=== PATIENT | female | born 1985 | race Caucasian/White ===

== ENCOUNTER 2020-07-01 07:38 | Outpatient (CLI) | payer OTHER, SELFPAY ==
[2020-07-01 08:06] LABS: Basophils Percent Auto 0.3 % (0.2-1.2); Eosinophils Absolute Auto 0.1 K/mm3 (0-0.3); Eosinophils Percent Auto 1.6 % (0-4.4); Hematocrit 37.2 % (37.0-47.0); Hemoglobin 12.3 g/dL (12.0-15.0); Immature Granulocyte Absolute 0.02 K/mm3 (0.00-0.031); Immature Granulocyte Percent A 0.3 % (0-0.5); Lymphocytes Absolute Auto 1.38 K/mm3 (0.9-3.2); Lymphocytes Percent Auto 19.6 % (18.3-44.2); Mean Corpuscular HGB Conc 33.1 g/dl (32-36); Mean Corpuscular Hemoglobin 28.7 pg (26-34); Mean Corpuscular Volume 86.9 fl (80-100); Monocytes Absolute Auto 0.5 K/mm3 (0.1-0.6); Monocytes Percent Auto 7.5 % (2.6-8.5); Neutrophils Percent Auto 70.7 % (45.5-73.1); Platelet Count Result 247 k/mm3 (150-375); Red Blood Count 4.28 M/mm3 (4.2-5.4); Red Cell Distribution Width 13.4 % (11.5-14.5)
[2020-07-01 08:24] LABS: Alanine Aminotransferase 18 U/L (4-35); Albumin Level 4.5 g/dL (3.5-5.1); Alkaline Phosphatase 95 U/L (38-126); Anion Gap 8 mmol/L (8-16); Aspartate Amino Transferase 26 U/L (14-36); Bilirubin,Total 0.5 mg/dL (0.2-1.3); Blood Urea Nitrogen 14 mg/dL (7-17); Calcium 9.5 mg/dL (8.4-10.2); Carbon Dioxide 29 mmol/L (22-30); Chloride 103 mmol/L (98-107); Cholesterol 158 mg/dL (0-200); Estimated Glomerular Filt Rate > 60; Glucose 92 mg/dL (65-105); HDL Direct 52 mg/dL; Potassium 4.1 mmol/L (3.4-5.0); Sodium 140 mmol/L (137-145); Triglycerides 82 mg/dL (<150)
[2020-07-01 08:35] LABS: LDL Cholesterol Direct 68 mg/dL
[2020-07-01 08:38] LABS: Hemoglobin A1C 5.2 % (<5.7)
[2020-07-01 08:53] LABS: Thyroid Stimulating Hormone 0.954 uIU/mL (0.465-4.680)
[2020-07-01 09:01] LABS: Vitamin D 25 Hydroxy 32.5 ng/mL
[2020-07-04 13:53] LABS: Prolactin 6.6 ng/mL (***)
== END 2020-07-01 07:39 | disposition home or self-care (01) ==
PROVIDERS: PCP Family Medicine; Visit Provider Obstetrics & Gynecology
DX: Z00.00 Encounter for general adult medical examination without abnormal findings (principal); N64.59 Other signs and symptoms in breast
CPT/HCPCS: 36415; 80053; 80061; 82306; 83036; 84146; 84443; 85025

== ENCOUNTER 2020-10-03 15:09 | Outpatient (CLI) | payer OTHER, SELFPAY ==
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
== END 2020-10-03 15:10 | disposition home or self-care (01) ==
PROVIDERS: PCP Family Medicine; Visit Provider Nurse Practitioner Family
DX: M50.321 Other cervical disc degeneration at C4-C5 level (principal)
CPT/HCPCS: 72040

== ENCOUNTER 2020-10-14 06:39 | Outpatient (CLI) | payer OTHER, SELFPAY ==
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
== END 2020-10-14 06:40 | disposition home or self-care (01) ==
PROVIDERS: PCP Family Medicine; Visit Provider Nurse Practitioner Family
DX: M54.12 Radiculopathy, cervical region (principal)
CPT/HCPCS: 72141

== ENCOUNTER 2022-07-19 17:49 | Outpatient (CLI) | payer OTHER, SELFPAY ==
--- NOTE | ~2022-07-19 | US_ITS ---
EXAMINATION: US OB <=14 wk fetus w TV DATE: 07/19/2022 18:49 INDICATION: Vaginal spotting. Early intrauterine . TECHNIQUE: Real-time transabdominal and transvaginal obstetric ultrasound. FINDINGS: No prior studies for comparison. The uterus measures 7.7 x 6.1 x 6.4 cm. There is an intrauterine gestational sac, with pole harjinder ntified. The crown rump length measures 0.66 cm, which correlates with a estimated gestational age o f 6 weeks 4 days. heart tones are identified measuring 144 BPM. The ovaries are obscured by b owel gas. IMPRESSION: 1. SL IUP with an EGA of 6 weeks, 4 days (EDC by current ultrasound of 03/10/2023). Reviewed, dictated and finalized at location [facility]. 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 SL IUP with an EGA of 6 weeks, 4 days (EDC by current ultrasound of 3).
== END 2022-07-19 17:50 | disposition home or self-care (01) ==
PROVIDERS: PCP Internal Medicine; Visit Provider Obstetrics & Gynecology
DX: O26.851 Spotting complicating pregnancy, first trimester (principal); Z87.51 Personal history of pre-term labor; Z3A.14 14 weeks gestation of pregnancy
CPT/HCPCS: 76801; 76817